=== PATIENT | female | born 1930 | race Caucasian/White ===

== ENCOUNTER 2016-06-07 15:28 | Inpatient (IN) | payer MEDICARE ==
[~2016-06-07] VITALS: Ht 162.6 cm; Wt 54.0 kg
[~2016-06-07 15:28] MED LIST: ALBU18HF INH; APIX5TAB PO; CEFD300C2 PO; DIGO125T PO; DILT180C53 PO; GUAI200T3 PO; LEVO112T4 PO; LEVO125T5 PO; NICO1PAT4 TD; PRED10TA PO
[2016-06-07] MEDS ORDERED: SODIUM CHLORIDE 0.9% 1,000 ML IV ONE ×2 (15:40→16:02)
[2016-06-07] MEDS ORDERED: ALBUTEROL/IPRATROPIUM 2.5MG/0.5MG, 3 ML ONE ×2 (15:53)
[2016-06-07] MEDS ORDERED: SODIUM CHLORIDE FLUSH 10ML SYR IVF ONE (16:00)
[2016-06-07] MEDS ORDERED: ALBUTEROL/IPRATROPIUM 2.5MG/0.5MG, 3 ML NPPB SCH (16:00)
[2016-06-07] MEDS ORDERED: DILTIAZEM 125 MG in DEXTROSE 5% 100 ML IV SCH (16:02)
[2016-06-07 16:25] LABS: BLOOD UREA NITROGEN 12 mg/dL (7-18)
[2016-06-07] MEDS ORDERED: DILTIAZEM 5 MG/ML, 5ML IV ONE (16:30)
[2016-06-07] MEDS ORDERED: ASPIRIN 81 MG TABLET CHEW PO ONE (16:30)
[2016-06-07] MEDS: CEFTRIAXONE PMX 1GM/50ML 50 ML IV ONE ×2 (16:30→17:18)
[2016-06-07] MEDS ORDERED: CEFTRIAXONE PMX 1GM/50ML 50 ML ONE (16:38)
[2016-06-07] MEDS ORDERED: DILTIAZEM 5 MG/ML, 5ML ONE (16:38)
[2016-06-07] MEDS ORDERED: ASPIRIN 81 MG TABLET CHEW ONE (16:38)
[2016-06-07 16:41] LABS: IS PT STATUS REG ER OR PRE ER? YES
[2016-06-07] MEDS ORDERED: LEVO125T5 PO (16:56)
[2016-06-07] MEDS ORDERED: DILTIAZEM 125 MG in SODIUM CHLORIDE 0.9% 100 ML IV SCH (17:00)
[2016-06-07] MEDS ORDERED: MORPHINE SULFATE 4 MG/ML, 1ML IVPush PRN (17:30)
[2016-06-07] MEDS ORDERED: ONDANSETRON ODT 4 MG PO PRN (17:30)
[2016-06-07] MEDS ORDERED: ONDANSETRON 2MG/ML, 2ML IVP PRN (17:30)
[2016-06-07] MEDS ORDERED: ACETAMINOPHEN 325 MG TABLET PO PRN (17:30)
[2016-06-07] MEDS ORDERED: FUROSEMIDE 20 MG/2 ML ONE (18:39)
[2016-06-07] MEDS ORDERED: methylPREDNISolone SOD SUCC 125 MG/2 ML ONE (18:39)
[2016-06-07 20:00] VITALS: BP 121/71
[2016-06-07] MEDS: DOXYCYCLINE 100 MG in DEXTROSE 5% 250 ML IV SCH (21:07)
[2016-06-07] MEDS: FUROSEMIDE 20 MG/2 ML IV SCH (21:07)
[2016-06-07] MEDS: methylPREDNISolone SOD SUCC 125 MG/2 ML IVPush SCH (21:07)
[2016-06-07] MEDS: APIXABAN 5 MG TABLET PO SCH (21:07)
[2016-06-07 21:28] VITALS: BP 121/71
[2016-06-07 22:43] LABS: IS PT STATUS REG ER OR PRE ER? NO
[2016-06-08] MEDS ORDERED: ALBUTEROL SULFATE 2.5 MG/3 ML NPPB PRN
[2016-06-08 00:37] VITALS: BP 123/72
[2016-06-08 05:10] LABS: HEMOGLOBIN 12.7 g/dL (11.7-16.4)
[2016-06-08 05:17] LABS: BLOOD UREA NITROGEN 14 mg/dL (7-18)
[2016-06-08 05:18] LABS: ASPARTATE AMINO TRANSFERASE 36 U/L (15-37)
[2016-06-08 05:21] LABS: IS PT STATUS REG ER OR PRE ER? NO
[2016-06-08] MEDS: methylPREDNISolone SOD SUCC 125 MG/2 ML IVPush SCH ×2 (05:23→15:42)
[2016-06-08 07:33] VITALS: BP 115/61
[2016-06-08] MEDS: FUROSEMIDE 20 MG/2 ML IV SCH ×2 (08:09→18:28)
[2016-06-08] MEDS: APIXABAN 5 MG TABLET PO SCH ×2 (08:10→21:03)
[2016-06-08] MEDS: DIGOXIN 0.125 MG TABLET PO SCH (08:10)
[2016-06-08] MEDS: LEVOTHYROXINE 125 MCG TABLET PO SCH (08:10)
[2016-06-08] MEDS: DOXYCYCLINE 100 MG in DEXTROSE 5% 250 ML IV SCH ×2 (08:10→21:02)
[2016-06-08] MEDS: ALBUTEROL SULFATE 2.5 MG/3 ML NPPB SCH ×3 (08:29→19:50)
[2016-06-08] MEDS ORDERED: DILTIAZEM 125 MG in SODIUM CHLORIDE 0.9% 100 ML IV PRN (08:30)
[2016-06-08 13:47] VITALS: BP 123/76
[2016-06-08] MEDS: DILTIAZEM 60 MG TABLET PO SCH ×2 (15:42→21:03)
[2016-06-08 20:06] VITALS: BP 101/54
[2016-06-09] MEDS: methylPREDNISolone SOD SUCC 125 MG/2 ML IVPush SCH ×2 (00:55→08:13)
[2016-06-09 02:00] VITALS: BP 101/62
[2016-06-09] MEDS: DILTIAZEM 60 MG TABLET PO SCH (05:54)
[2016-06-09 07:10] VITALS: BP 138/76
[2016-06-09] MEDS: ALBUTEROL SULFATE 2.5 MG/3 ML NPPB SCH ×3 (07:33→21:02)
[2016-06-09] MEDS: FUROSEMIDE 20 MG/2 ML IV SCH (08:13)
[2016-06-09] MEDS: LEVOTHYROXINE 125 MCG TABLET PO SCH (08:13)
[2016-06-09] MEDS: APIXABAN 5 MG TABLET PO SCH ×2 (08:13→21:16)
[2016-06-09] MEDS: DIGOXIN 0.125 MG TABLET PO SCH (08:13)
[2016-06-09] MEDS: DOXYCYCLINE 100 MG in DEXTROSE 5% 250 ML IV SCH ×2 (08:55→21:14)
[2016-06-09] MEDS ORDERED: CALCIUM CARBONATE 500 MG TAB.CHEW PO PRN (11:30)
[2016-06-09] MEDS: POTASSIUM CHLORIDE 10 MEQ TABLET.ER PO SCH (12:21)
[2016-06-09] MEDS ORDERED: DILTIAZEM 60 MG TABLET PO ONE (12:30)
[2016-06-09 14:00] VITALS: BP 124/69
[2016-06-09 20:56] VITALS: BP 137/75
[2016-06-09] MEDS: DILTIAZEM CD 180 MG CAP.ER.24H PO SCH (21:16)
[2016-06-10 02:00] VITALS: BP 109/69
[2016-06-10 06:55] LABS: BLOOD UREA NITROGEN 17 mg/dL (7-18)
[2016-06-10 07:57] VITALS: BP 136/72
[2016-06-10] MEDS: ALBUTEROL SULFATE 2.5 MG/3 ML NPPB SCH ×3 (09:00→20:53)
[2016-06-10] MEDS: DOXYCYCLINE 100 MG in DEXTROSE 5% 250 ML IV SCH ×2 (09:34→21:26)
[2016-06-10] MEDS: POTASSIUM CHLORIDE 10 MEQ TABLET.ER PO SCH (09:35)
[2016-06-10] MEDS: APIXABAN 5 MG TABLET PO SCH ×2 (09:35→20:49)
[2016-06-10] MEDS: DIGOXIN 0.125 MG TABLET PO SCH (09:35)
[2016-06-10] MEDS: DILTIAZEM CD 180 MG CAP.ER.24H PO SCH ×2 (09:35→20:48)
[2016-06-10] MEDS: FUROSEMIDE 20 MG TABLET PO SCH (09:35)
[2016-06-10] MEDS: LEVOTHYROXINE 125 MCG TABLET PO SCH (09:36)
[2016-06-10] MEDS ORDERED: DILTIAZEM 5 MG/ML, 5ML IVPush ONE (12:00)
[2016-06-10 12:30] VITALS: BP 114/69
[2016-06-10] MEDS ORDERED: DIGOXIN 0.25 MG/ML, 2ML IVPush ONE (13:00)
[2016-06-10] MEDS ORDERED: MAGNESIUM SULFATE PMX 2GM/50ML 50 ML IV ONE (13:00)
[2016-06-10 15:56] VITALS: BP 109/63
[2016-06-10 21:08] VITALS: BP 114/64
[2016-06-11 01:49] VITALS: BP 125/68
[2016-06-11 06:52] VITALS: BP 125/82
[2016-06-11] MEDS: ALBUTEROL SULFATE 2.5 MG/3 ML NPPB SCH (09:00)
[2016-06-11] MEDS: LEVOTHYROXINE 125 MCG TABLET PO SCH (09:00)
[2016-06-11] MEDS: DIGOXIN 0.125 MG TABLET PO SCH (09:58)
[2016-06-11] MEDS: DOXYCYCLINE 100 MG in DEXTROSE 5% 250 ML IV SCH (09:58)
[2016-06-11] MEDS: FUROSEMIDE 20 MG TABLET PO SCH (09:59)
[2016-06-11] MEDS: DILTIAZEM CD 180 MG CAP.ER.24H PO SCH (09:59)
[2016-06-11] MEDS: POTASSIUM CHLORIDE 10 MEQ TABLET.ER PO SCH (09:59)
[2016-06-11] MEDS: APIXABAN 5 MG TABLET PO SCH (09:59)
[2016-06-11] MEDS ORDERED: DOXY100T PO (11:08)
[2016-06-11] MEDS ORDERED: DILT180C53 PO (11:08)
[2016-06-11] MEDS ORDERED: DIGO125T PO (11:08)
[2016-06-11] MEDS ORDERED: PRED20TA PO (11:08)
[2016-06-11] MEDS ORDERED: ALBU18HF INH (11:08)
[2016-06-11] MEDS ORDERED: APIX5TAB PO (11:08)
[2016-06-11 13:31] VITALS: BP 127/72
== END 2016-06-11 17:10 | disposition home health service (06) | DRG 308 ==
LOC: ED 16:47 → EDIP 16:48 → ED 17:27 → 5SO 18:44 → DCLOUNGE 06-11 16:44
PROVIDERS: ADMIT Internal Medicine; ATTEND Internal Medicine
DX: I48.0 Paroxysmal atrial fibrillation (principal); I50.33 Acute on chronic diastolic (congestive) heart failure; J44.1 Chronic obstructive pulmonary disease with (acute) exacerbation; E87.1 Hypo-osmolality and hyponatremia; D68.69 Other thrombophilia; I42.9 Cardiomyopathy, unspecified; J45.909 Unspecified asthma, uncomplicated; E03.9 Hypothyroidism, unspecified; M19.90 Unspecified osteoarthritis, unspecified site; Z79.01 Long term (current) use of anticoagulants; Z86.73 Personal history of transient ischemic attack (TIA), and cerebral infarction without residual deficits; Z87.891 Personal history of nicotine dependence; Z82.5 Family history of asthma and other chronic lower respiratory diseases; Z80.42 Family history of malignant neoplasm of prostate; Z91.14 Patient's other noncompliance with medication regimen; M06.9 Rheumatoid arthritis, unspecified
CPT/HCPCS: 36415; 71010; 80048; 80053; 80162; 82040; 83605; 83735; 83880; 84439; 84443; 84484; 85025; 85610; 93005; 93970; 94640; 96365; 96366; 96368; 96376; J0696; J7060; J7613; J7620; J1160; J1940; J2930; J3475; J7030; J7512

== ENCOUNTER → 2016-07-12 | Outpatient (CLI) | payer MEDICARE ==
[~2016-07-12] MED LIST changes: -CEFD300C2 PO; +CEFD300C37 PO; +DOXY100T PO; +PRED20TA PO
== END | disposition home or self-care (01) ==
LOC: CFH 15:55
PROVIDERS: ATTEND Emergency Medicine
DX: I48.91 Unspecified atrial fibrillation (principal); M79.662 Pain in left lower leg

== ENCOUNTER → 2016-08-06 | Outpatient (CLI) | payer MEDICARE ==
[~2016-08-06] MED LIST changes: +ACET500T76 PO; +DIAZ2TAB3 PO; +FURO20TA3 PO; +SULF-187 PO
== END | disposition home or self-care (01) ==
LOC: WOUND 09:02
PROVIDERS: ATTEND Physician Assistant
DX: R60.0 Localized edema (principal); I10 Essential (primary) hypertension; I48.2 Chronic atrial fibrillation; J44.9 Chronic obstructive pulmonary disease, unspecified; F41.9 Anxiety disorder, unspecified; M19.90 Unspecified osteoarthritis, unspecified site; E03.9 Hypothyroidism, unspecified; E78.00 Pure hypercholesterolemia, unspecified
CPT/HCPCS: G0463; WOU0463

== ENCOUNTER → 2018-04-26 | Outpatient (CLI) | payer MEDICARE ==
[~2018-04-26] MED LIST changes: +ACET500T71 PO; -ACET500T76 PO; +NICO-486 TD; -NICO1PAT4 TD; +SULF-16 PO; -SULF-187 PO
== END | disposition home or self-care (01) ==
LOC: CFH 10:58
PROVIDERS: ATTEND Internal Medicine
DX: S13.130A Subluxation of C2/C3 cervical vertebrae, initial encounter (principal); M50.33 Other cervical disc degeneration, cervicothoracic region; M48.02 Spinal stenosis, cervical region; X58.XXXA Exposure to other specified factors, initial encounter; M25.78 Osteophyte, vertebrae; Y93.89 Activity, other specified; Y92.89 Other specified places as the place of occurrence of the external cause; Y99.8 Other external cause status
CPT/HCPCS: 72050

== ENCOUNTER 2019-04-02 16:47 | Inpatient (IN) | payer MEDICARE ==
[~2019-04-02] VITALS: Ht 162.6 cm; Wt 54.8 kg
[~2019-04-02 16:47] MED LIST changes: +ACET500T64 PO; -ACET500T71 PO; -GUAI200T3 PO; +GUAI200T37 PO
[2019-04-02] MEDS ORDERED: SODIUM CHLORIDE 0.9% 1,000ML IVBOLUS ONE (17:30)
[2019-04-02] MEDS ORDERED: methylPREDNISolone SOD SUCC 125 MG/2 ML IV ONE (17:30)
[2019-04-02] MEDS ORDERED: SODIUM CHLORIDE FLUSH 10ML SYR IVF ONE (17:30)
[2019-04-02] MEDS ORDERED: ALBUTEROL/IPRATROPIUM 2.5MG/0.5MG, 3 ML NPPB ONE (17:30)
--- NOTE | 2019-04-02 17:38 | NUR ---
EKG & CXR DONE. LAB AT [facility]
--- NOTE | 2019-04-02 17:41 | NUR ---
PT A&OX4, RESP EVEN & UNLABORED, SPEECH CLEAR, SKIN WNL. STATES SHE COUGHED UP A LITTLE BLOOD EARLIER TODAY. REPORTS COUGH FOR AT LEAST A WEEK. "I THOUGHT I WAS GETTING OVER IT BUT THEN IT GOT WORSE." (YESTERDAY). PT C/O CHILLS, HAS NOT TAKEN HER TEMP. TYLENOL AT NOON TODAY. DENIES N/V, DIARRHEA, CONSTIPATION, UTI SX.
[2019-04-02] MEDS ORDERED: LEVO112T2 PO (17:50)
[2019-04-02 17:57] LABS: BASOPHILS # (AUTO) 0.01 x10^3/uL (0-0.1); BASOPHILS % (AUTO) 0 % (0-1); EOSINOPHILS # (AUTO) 0.03 x10^3/uL (0-0.4); EOSINOPHILS % (AUTO) 0 % (1-7); LYMPHOCYTES # (AUTO) 1.63 x10^3/uL (1-3.4); LYMPHOCYTES % (AUTO) 14 % (22-44); MD NO; MEAN CORPUSCULAR HEMOGLOBIN 32.2 pg (27.0-34.8); MEAN CORPUSCULAR HGB CONC 33.6 g/dL (32.4-35.8); MEAN CORPUSCULAR VOLUME 95.9 fL (80-100); MEAN PLATELET VOLUME 7.4 fL (7.4-10.4); MONOCYTES % (AUTO) 6 % (2-9); NEUTROPHILS % (AUTO) 80 % (42-75); PLATELET COUNT 236 x10^3/uL (130-400); RED BLOOD COUNT 4.24 x10^6/uL (3.82-5.3); RED CELL DISTRIBUTION WIDTH 13.4 % (9.6-15.2)
[2019-04-02 18:07] LABS: ALANINE AMINOTRANSFERASE 33 U/L (12-78); ALBUMIN 4.1 g/dL (3.4-5.0); ANION GAP 9 mmol/L (5-15); CALCIUM 8.8 mg/dL (8.5-10.1); CHLORIDE 92 mmol/L (98-107); CREATININE 0.56 mg/dL (0.55-1.02)
[2019-04-02 18:17] LABS: INTERNATIONAL NORMALIZED RATIO 1.07 (0.93-1.1); PROTHROMBIN TIME 11.3 Seconds (9.6-11.5)
--- NOTE | 2019-04-02 18:18 | NUR ---
PIV INITIATED 20G LT FA. BLD CX SET #2 DRAWN FROM SITE. NS 500ML BOLUS STARTED.
[2019-04-02 18:22] LABS: ALKALINE PHOSPHATASE 136 U/L (45-117); BILIRUBIN,TOTAL 1.5 mg/dL (0.2-1.0); TOTAL PROTEIN 7.4 g/dL (6.4-8.2)
[2019-04-02] MEDS ORDERED: methylPREDNISolone SOD SUCC 125 MG/2 ML ONE (18:22)
[2019-04-02] MEDS ORDERED: ACETAMINOPHEN 325 MG TABLET ONE (18:22)
[2019-04-02] MEDS ORDERED: ACETAMINOPHEN 325 MG TABLET PO ONE (18:30)
[2019-04-02 18:36] LABS: RAPID INFLUENZA A Negative (Negative); RAPID INFLUENZA B Negative (Negative)
[2019-04-02] MEDS ORDERED: DILTIAZEM 5 MG/ML, 5ML IVPush ONE (19:30)
[2019-04-02] MEDS ORDERED: SODIUM CHLORIDE 0.9%, 500ML IVBOLUS ONE (19:30)
--- NOTE | 2019-04-02 19:30 | NUR ---
PT NOT IN ROOM; MIGHT BE AT [facility]
[2019-04-02] MEDS ORDERED: OMNIPAQUE 350 MG/ML, 100ML BOTTLE ONE (19:42)
[2019-04-02] MEDS ORDERED: DILTIAZEM 5 MG/ML, 5ML ONE (19:46)
--- NOTE | 2019-04-02 20:02 | NUR ---
CARDIZEM GIVEN PER EMAR. IV SITE PATENT.
--- NOTE | 2019-04-02 20:44 | NUR ---
PT REPORT TO CINDI WHIPPLE FOR ROOM 514
--- NOTE | 2019-04-02 21:04 | NUR ---
PT'S SON-IN-LAW CALLED ED FOR PT STATUS UPDATE; VERBAL PERMISSION TO RELEASE INFORMATION RECEIVED FROM PT. GENERAL INFORMATION PROVIDED. DAUGHTER & SON-IN-LAW: OVI ( 11/28/53) & OTIS ( 11/15/63) MERI, TEL: [phone]
--- NOTE | 2019-04-02 21:08 | NUR ---
PT AWAITING TRANSPORT TO FLOOR.
[2019-04-02 21:22] VITALS: BP 137/69
[2019-04-02] MEDS ORDERED: DILTIAZEM 5 MG/ML, 5ML IVPush PRN (22:30)
[2019-04-02] MEDS ORDERED: ONDANSETRON 2MG/ML, 2ML IVPush PRN (23:00)
[2019-04-02] MEDS ORDERED: morphine SULFATE 10 MG/ML, 1ML IVPush PRN (23:00)
[2019-04-02] MEDS ORDERED: CEFTRIAXONE PMX 1GM/50ML 50 ML IV SCH (23:30)
[2019-04-03 00:02] LABS: ANION GAP 7 mmol/L (5-15); CALCIUM 8.5 mg/dL (8.5-10.1); CHLORIDE 97 mmol/L (98-107); CREATININE 0.63 mg/dL (0.55-1.02)
[2019-04-03 00:06] LABS: FREE T4 (FREE THYROXINE) 1.33 ng/dL (0.76-1.46); TROPONIN I < 0.015 ng/mL (0.000-0.045)
[2019-04-03] MEDS: methylPREDNISolone SOD SUCC 125 MG/2 ML IVPush SCH ×2 (00:12→05:27)
[2019-04-03] MEDS: DILTIAZEM 90 MG CAP.ER.12H PO SCH ×3 (00:12→21:13)
[2019-04-03] MEDS: GUAIFENESIN 200 MG TABLET PO SCH ×5 (00:12→21:13)
[2019-04-03 00:43] VITALS: BP 115/57
[2019-04-03] MEDS: DOXYCYCLINE 100 MG in DEXTROSE 5% 250 ML IV SCH ×2 (00:53→12:14)
[2019-04-03] MEDS: LEVOTHYROXINE 112 MCG TABLET PO SCH (05:27)
[2019-04-03 05:37] LABS: MEAN CORPUSCULAR HEMOGLOBIN 32.2 pg (27.0-34.8); MEAN CORPUSCULAR HGB CONC 32.6 g/dL (32.4-35.8); MEAN CORPUSCULAR VOLUME 98.7 fL (80-100); MEAN PLATELET VOLUME 7.9 fL (7.4-10.4); PLATELET COUNT 240 x10^3/uL (130-400)
[2019-04-03 05:47] LABS: ANION GAP 6 mmol/L (5-15); CALCIUM 8.8 mg/dL (8.5-10.1); CHLORIDE 101 mmol/L (98-107); CHOLESTEROL, TOTAL 252 mg/dL (140-239); CREATININE 0.68 mg/dL (0.55-1.02)
[2019-04-03 05:51] LABS: TRIGLYCERIDES 42 mg/dL (50-200); TROPONIN I < 0.015 ng/mL (0.000-0.045); VLDL CHOLESTEROL 8 mg/dL (0-25)
[2019-04-03 06:00] LABS: CHOL/HDL RATIO 1.7; HDL CHOL % 59 % (28-40); HDL CHOLESTEROL (DIRECT) 149 mg/dL (40-60); LDL CHOLESTEROL,CALCULATED 95 mg/dL (54-169); LDL/HDL RATIO 0.6 (0.5-3.0)
[2019-04-03 06:06] LABS: BASOPHILS # (AUTO) 0.02 x10^3/uL (0-0.1); BASOPHILS % (AUTO) 0 % (0-1); EOSINOPHILS % (AUTO) 0 % (1-7); LYMPHOCYTES # (AUTO) 0.49 x10^3/uL (1-3.4); LYMPHOCYTES % (AUTO) 4 % (22-44); MD SCAN; MONOCYTES % (AUTO) 1 % (2-9); NEUTROPHILS # (AUTO) 12.11 x10^3/uL (1.8-6.8); NEUTROPHILS % (AUTO) 95 % (42-75)
[2019-04-03] MEDS: ALBUTEROL SULFATE 2.5 MG/3 ML NPPB SCH ×4 (07:05→18:58)
[2019-04-03] MEDS: APIXABAN 5 MG TABLET PO SCH ×2 (07:50→21:13)
[2019-04-03] MEDS: DIGOXIN 0.125 MG TABLET PO SCH (07:51)
[2019-04-03] MEDS: FUROSEMIDE 20 MG TABLET PO SCH (07:51)
[2019-04-03 07:52] VITALS: BP 118/59
[2019-04-03] MEDS: ACETAMINOPHEN 325 MG TABLET PO PRN (08:32)
[2019-04-03] MEDS: BUDESONIDE 0.5 MG/2 ML INHA NPPB SCH ×2 (09:00→18:58)
[2019-04-03 14:20] VITALS: BP 125/60
[2019-04-03 18:45] VITALS: BP 115/60
[2019-04-03] MEDS: DIAZEPAM 2 MG TABLET PO PRN (21:13)
[2019-04-04] MEDS: DOXYCYCLINE 100 MG in DEXTROSE 5% 250 ML IV SCH ×2 (00:25→11:35)
[2019-04-04 01:09] VITALS: BP 135/80
[2019-04-04] MEDS: ACETAMINOPHEN 325 MG TABLET PO PRN ×2 (02:14→21:09)
[2019-04-04 04:21] LABS: BASOPHILS % (AUTO) 0 % (0-1); EOSINOPHILS % (AUTO) 0 % (1-7); LYMPHOCYTES # (AUTO) 0.79 x10^3/uL (1-3.4); LYMPHOCYTES % (AUTO) 5 % (22-44); MD NO; MEAN CORPUSCULAR HEMOGLOBIN 32.1 pg (27.0-34.8); MEAN CORPUSCULAR VOLUME 97.3 fL (80-100); MEAN PLATELET VOLUME 7.6 fL (7.4-10.4); MONOCYTES # (AUTO) 0.55 x10^3/uL (0.2-0.8); MONOCYTES % (AUTO) 3 % (2-9); NEUTROPHILS # (AUTO) 15.49 x10^3/uL (1.8-6.8); NEUTROPHILS % (AUTO) 92 % (42-75); PLATELET COUNT 208 x10^3/uL (130-400); RED BLOOD COUNT 3.92 x10^6/uL (3.82-5.3); RED CELL DISTRIBUTION WIDTH 13.5 % (9.6-15.2)
[2019-04-04 04:26] LABS: ANION GAP 7 mmol/L (5-15); CALCIUM 8.7 mg/dL (8.5-10.1); CHLORIDE 98 mmol/L (98-107); CREATININE 0.76 mg/dL (0.55-1.02)
[2019-04-04] MEDS: LEVOTHYROXINE 112 MCG TABLET PO SCH (06:10)
[2019-04-04] MEDS: GUAIFENESIN 200 MG TABLET PO SCH ×4 (06:10→21:09)
[2019-04-04] MEDS: ALBUTEROL SULFATE 2.5 MG/3 ML NPPB SCH ×4 (07:20→18:56)
[2019-04-04 07:50] VITALS: BP 110/67
[2019-04-04 08:12] VITALS: BP 111/52
[2019-04-04] MEDS: FUROSEMIDE 20 MG TABLET PO SCH (08:15)
[2019-04-04] MEDS: DILTIAZEM 90 MG CAP.ER.12H PO SCH ×2 (08:15→21:09)
[2019-04-04] MEDS: APIXABAN 5 MG TABLET PO SCH (08:15)
[2019-04-04] MEDS: DIGOXIN 0.125 MG TABLET PO SCH (08:16)
[2019-04-04] MEDS: BUDESONIDE 0.5 MG/2 ML INHA NPPB SCH ×2 (09:00→18:56)
[2019-04-04 14:25] VITALS: BP 105/50
[2019-04-04 20:00] VITALS: BP 110/58
[2019-04-04 20:30] VITALS: BP 128/61
[2019-04-04] MEDS: APIXABAN 2.5 MG TABLET PO SCH (21:09)
[2019-04-05] MEDS: DOXYCYCLINE 100 MG in DEXTROSE 5% 250 ML IV SCH ×2 (00:24→11:30)
[2019-04-05 03:17] VITALS: BP_SYST 114; BP_SYST 118; BP_DIAS 68; BP_DIAS 72
[2019-04-05 05:08] LABS: BASOPHILS # (AUTO) 0.01 x10^3/uL (0-0.1); BASOPHILS % (AUTO) 0 % (0-1); EOSINOPHILS # (AUTO) 0.01 x10^3/uL (0-0.4); EOSINOPHILS % (AUTO) 0 % (1-7); LYMPHOCYTES # (AUTO) 1.07 x10^3/uL (1-3.4); LYMPHOCYTES % (AUTO) 8 % (22-44); MD NO; MEAN CORPUSCULAR HEMOGLOBIN 32.3 pg (27.0-34.8); MEAN CORPUSCULAR HGB CONC 32.8 g/dL (32.4-35.8); MEAN CORPUSCULAR VOLUME 98.3 fL (80-100); MEAN PLATELET VOLUME 7.7 fL (7.4-10.4); MONOCYTES # (AUTO) 0.89 x10^3/uL (0.2-0.8); MONOCYTES % (AUTO) 6 % (2-9); NEUTROPHILS % (AUTO) 86 % (42-75); PLATELET COUNT 245 x10^3/uL (130-400); RED BLOOD COUNT 4.24 x10^6/uL (3.82-5.3); RED CELL DISTRIBUTION WIDTH 13.1 % (9.6-15.2)
[2019-04-05 05:16] LABS: ANION GAP 6 mmol/L (5-15); CALCIUM 8.9 mg/dL (8.5-10.1); CHLORIDE 102 mmol/L (98-107); CREATININE 0.83 mg/dL (0.55-1.02)
[2019-04-05] MEDS: GUAIFENESIN 200 MG TABLET PO SCH ×2 (06:02→12:25)
[2019-04-05] MEDS: LEVOTHYROXINE 112 MCG TABLET PO SCH (06:02)
[2019-04-05 06:50] VITALS: BP 121/74
[2019-04-05] MEDS: ALBUTEROL SULFATE 2.5 MG/3 ML NPPB SCH ×3 (07:00→14:00)
[2019-04-05] MEDS: BUDESONIDE 0.5 MG/2 ML INHA NPPB SCH (07:18)
[2019-04-05] MEDS ORDERED: ALBU18HF INH (08:17)
[2019-04-05] MEDS ORDERED: DOXY100C2 PO (08:17)
[2019-04-05] MEDS ORDERED: APIX2.5T PO (08:17)
[2019-04-05] MEDS ORDERED: PRED20TA PO (08:17)
[2019-04-05] MEDS: FUROSEMIDE 20 MG TABLET PO SCH (09:00)
[2019-04-05] MEDS: DIGOXIN 0.125 MG TABLET PO SCH (09:12)
[2019-04-05] MEDS: DILTIAZEM 90 MG CAP.ER.12H PO SCH (09:12)
[2019-04-05] MEDS: APIXABAN 2.5 MG TABLET PO SCH (09:12)
[2019-04-05 11:49] VITALS: BP 141/78
[2019-04-05 12:25] VITALS: BP 132/73
[2019-04-05] MEDS ORDERED: DOXYCYCLINE 100MG TABLET PO ONE (12:30)
[2019-04-05] MEDS: DIAZEPAM 2 MG TABLET PO PRN (13:26)
== END 2019-04-05 14:50 | disposition home or self-care (01) | DRG 291 ==
LOC: ED 18:21 → EDIP 20:14 → 5SO 21:15 → DCLOUNGE 04-05 14:12
PROVIDERS: ADMIT Family Medicine; ATTEND Family Medicine
DX: I50.33 Acute on chronic diastolic (congestive) heart failure (principal); J96.21 Acute and chronic respiratory failure with hypoxia; J44.1 Chronic obstructive pulmonary disease with (acute) exacerbation; E87.1 Hypo-osmolality and hyponatremia; M48.54XA Collapsed vertebra, not elsewhere classified, thoracic region, initial encounter for fracture; D68.69 Other thrombophilia; R04.2 Hemoptysis; R65.10 Systemic inflammatory response syndrome (SIRS) of non-infectious origin without acute organ dysfunction; I48.0 Paroxysmal atrial fibrillation; E03.9 Hypothyroidism, unspecified; E78.5 Hyperlipidemia, unspecified; Z66 Do not resuscitate; Z77.22 Contact with and (suspected) exposure to environmental tobacco smoke (acute) (chronic); Z80.42 Family history of malignant neoplasm of prostate; Z82.5 Family history of asthma and other chronic lower respiratory diseases; Z86.73 Personal history of transient ischemic attack (TIA), and cerebral infarction without residual deficits; Z87.891 Personal history of nicotine dependence; Z99.81 Dependence on supplemental oxygen
CPT/HCPCS: 36415; 71045; 71275; 80048; 80053; 80061; 80162; 83605; 83735; 83880; 84100; 84145; 84439; 84443; 84484; 85025; 85610; 85730; 87040; 87070; 87205; 87400; 93005; 93306; 94640; 96374; 99291; G0378; J0696; J7060; J7613; J7620; J7626; Q9967; J2930; J7030; J7040; J7512

== ENCOUNTER → 2020-05-08 | Outpatient (CLI) | payer MEDICARE ==
[~2020-05-08] MED LIST changes: +APIX2.5T PO; -DIGO125T PO; +DIGO125T85 PO; +DOXY100C2 PO; +LEVO112T2 PO
[2020-05-08 09:44] LABS: BASOPHILS % (AUTO) 1 % (0-1); EOSINOPHILS % (AUTO) 1 % (1-7); LYMPHOCYTES % (AUTO) 23 % (22-44); MEAN CORPUSCULAR HEMOGLOBIN 32.4 pg (27.0-34.8); MEAN CORPUSCULAR HGB CONC 33.1 g/dL (32.4-35.8); MONOCYTES % (AUTO) 8 % (2-9); NEUTROPHILS % (AUTO) 67 % (42-75); PLATELET COUNT 233 x10^3/uL (130-400); RED BLOOD COUNT 4.14 x10^6/uL (3.82-5.3); RED CELL DISTRIBUTION WIDTH 13.7 % (9.6-15.2)
[2020-05-08 09:45] LABS: MD NO
[2020-05-08 09:54] LABS: ALANINE AMINOTRANSFERASE 36 U/L (12-78); ALBUMIN 4.6 g/dL (3.4-5.0); ANION GAP 8 mmol/L (5-15); CALCIUM 9.3 mg/dL (8.5-10.1); CHLORIDE 103 mmol/L (98-107); CREATININE 0.64 mg/dL (0.55-1.02)
[2020-05-08 10:10] LABS: ALKALINE PHOSPHATASE 141 U/L (45-117); BILIRUBIN,TOTAL 0.9 mg/dL (0.2-1.0); CHOL/HDL RATIO 1.8; CHOLESTEROL, TOTAL 276 mg/dL (140-239); HDL CHOL % 56 % (28-40); HDL CHOLESTEROL (DIRECT) 155 mg/dL (40-60); LDL CHOLESTEROL,CALCULATED 110 mg/dL (54-169); LDL/HDL RATIO 0.7 (0.5-3.0); TOTAL PROTEIN 7.5 g/dL (6.4-8.2); TRIGLYCERIDES 55 mg/dL (50-200); VLDL CHOLESTEROL 11 mg/dL (0-25)
== END | disposition home or self-care (01) ==
LOC: LAB 09:25
PROVIDERS: ATTEND Internal Medicine
DX: E03.9 Hypothyroidism, unspecified (principal); G47.36 Sleep related hypoventilation in conditions classified elsewhere; G63 Polyneuropathy in diseases classified elsewhere; I11.0 Hypertensive heart disease with heart failure; I34.0 Nonrheumatic mitral (valve) insufficiency; I48.0 Paroxysmal atrial fibrillation; I50.30 Unspecified diastolic (congestive) heart failure; I73.9 Peripheral vascular disease, unspecified; J44.9 Chronic obstructive pulmonary disease, unspecified; M19.90 Unspecified osteoarthritis, unspecified site
CPT/HCPCS: 36415; 80053; 80061; 84443; 85025

== ENCOUNTER 2020-10-08 14:23 | Emergency (ER) | payer MEDICARE ==
[~2020-10-08] VITALS: Ht 162.6 cm; Wt 53.0 kg
--- NOTE | 2020-10-08 15:37 | NUR ---
AT [facility]. PT W/ CONTINOUSLY BLEEDING VARICOSE VEIN ON LT ANKLE. GUAZE REPLACED AND PRESSURE APPLIED.
[2020-10-08] MEDS ORDERED: LIDOCAINE 1%-EPI 1:100K, 20ML INFIL ONE (16:00)
[2020-10-08] MEDS ORDERED: LIDOCAINE 1%-EPI 1:100K, 20ML ONE (16:04)
[2020-10-08 16:25] VITALS: BP 135/68
--- NOTE | 2020-10-08 16:49 | NUR ---
PT AMBULATORY W/ A STEADY GAIT TO THE BR. RETURNED TO ROOM W/O INCIDENT.
--- NOTE | 2020-10-08 17:03 | NUR ---
OVI CALABRESE (DAUGHTER) [phone]. PATIENTS RIDE. OK TO CALL WHEN READY FOR DC.
[2020-10-08] MEDS ORDERED: MICROFIBRILLAR COLLAGEN 1 GM TP ONE ×2 (17:28→17:30)
--- NOTE | 2020-10-08 17:54 | NUR ---
Patient given discharge instructions and they have confirmed that they understand the instructions. Patient ambulatory with steady gait. Patient picked up by daughter.
== END 2020-10-08 17:56 | disposition home or self-care (01) ==
LOC: ED 17:00
DX: S91.012A Laceration without foreign body, left ankle, initial encounter (principal); I83.899 Varicose veins of unspecified lower extremity with other complications; Z79.01 Long term (current) use of anticoagulants; W18.30XA Fall on same level, unspecified, initial encounter; Y93.89 Activity, other specified; Y92.009 Unspecified place in unspecified non-institutional (private) residence as the place of occurrence of the external cause; Y99.8 Other external cause status
CPT/HCPCS: 12001; 99281; 99282